=== PATIENT | male | born 1985 | race Caucasian/White ===

== ENCOUNTER 2022-05-12 17:26 | Emergency (ER) | payer MEDICAID ==
[~2022-05-12] VITALS: Ht 154.9 cm; Wt 66.2 kg
[2022-05-12 17:53] VITALS: BP 127/73
[2022-05-12] MEDS ORDERED: IBUP-2213 PO (18:23)
[2022-05-12] MEDS ORDERED: ACET-10509 PO (18:23)
[2022-05-12] MEDS ORDERED: HYD1C TP (18:26)
[2022-05-12 18:58] VITALS: BP 127/73
--- NOTE | 2022-05-12 18:58 | NUR ---
Patient discharged with v/s stable. Written and verbal after care instructions given and explained. Patient alert, oriented and verbalized understanding of instructions. Ambulatory with steady gait. All questions addressed prior to discharge. ID band removed. Patient advised to follow up with PMD. Rx of tylenol, hydrocortisone,selenium given. Patient educated on indication of medication including possible reaction and side effects. Opportunity to ask questions provided and answered.
[2022-05-12] MEDS ORDERED: [UNRECOGNIZED DRUG - CODE] TP (19:00)
== END 2022-05-12 18:58 | disposition home or self-care (01) ==
LOC: MED 17:26
DX: R07.89 Other chest pain (principal); L30.9 Dermatitis, unspecified; B35.3 Tinea pedis; F17.210 Nicotine dependence, cigarettes, uncomplicated; Z71.6 Tobacco abuse counseling; Z79.899 Other long term (current) drug therapy; Z79.1 Long term (current) use of non-steroidal anti-inflammatories (NSAID)
CPT/HCPCS: 93005; 99283